=== PATIENT | male | born 1980 | race Caucasian/White ===

== ENCOUNTER 2017-08-06 08:46 | Emergency (ER) | payer BC ==
--- NOTE | 2017-08-06 09:47 | EDM.PDOC ---
<Julia Auguste - Last Filed: 08/06/17 09:37> ED HPI GENERAL MEDICAL PROBLEM - General Chief Complaint: Lower Extremity Injury/Pain Stated Complaint: L KNEE PAIN Time Seen by Provider: 08/06/17 09:25 Source of Information: Reports: Patient History Limitations: Reports: No Limitations - History of Present Illness INITIAL COMMENTS - FREE TEXT/NARRATIVE: Patient is a 36 YO male who presents today with pain to the left knee. He states this started and denies any injury or overuse. He has been taking Aleve and Indomethacin with some relief. He states the pain is presents at rest and is made worse with flexion of the knee. He states there is pain at the suprapatellar recess. He was seen at the walk-in clinic yesterday where they did an x-ray and uric acid level. He was told his uric acid level was low and the x-ray showed no bony abnormality. He has been wearing a brace and using crutches. This morning when he woke up the pain was severe and rated 9/ 10. He denies prior surgeries or chronic pain in the knee. He does have a history of gout and is not on any prophylactic medications. He denies fever or chills. Left Knee Pain Score (Numeric/FACES): 6 - Related Data Allergies Allergy/AdvReac Type Severity Reaction Status Date / Time No Known Allergies Allergy Verified 08/06/17 09:03 Home Meds: Home Meds Colchicine 0.6 mg PO ASDIRECTED #2 tablet 08/06/17 [Rx] Diclofenac Sodium [Voltaren] 50 mg PO TID #21 tab.ec 08/06/17 [Rx] Omeprazole Magnesium [Prilosec Otc] 20 mg PO DAILY 08/06/17 [History] Sucralfate [Carafate] 1 gm PO DAILY 08/06/17 [History] predniSONE [Deltasone] 20 mg PO BID #10 tablet 08/06/17 [Rx] Past Medical History HEENT History: Reports: Impaired Vision Gastrointestinal History: Reports: Other (See Below) Other Gastrointestinal History: Not diagnosed stomach problems Musculoskeletal History: Reports: Gout Psychiatric History: Reports: ADD - Past Surgical History GI Surgical History: Reports: Hernia Repair/Other Musculoskeletal Surgical History: Reports: Shoulder Surgery Other Musculoskeletal Surgeries/Procedures:: Hand surgery Social & Family History - Family History Family Medical History: Noncontributory - Tobacco Use Smoking Status *Q: Never Smoker - Recreational Drug Use Recreational Drug Use: No Review of Systems - Review of Systems Review Of Systems: See Below Constitutional: Reports: No Symptoms Respiratory: Reports: No Symptoms Cardiovascular: Reports: No Symptoms Musculoskeletal: Reports: Joint Pain (suprapatellar swelling, severe tenderness) Skin: Reports: No Symptoms Neurological: Reports: No Symptoms Psychiatric: Reports: No Symptoms ED EXAM, GENERAL - Physical Exam Exam: See Below Exam Limited By: No Limitations General Appearance: Alert, WD/WN, No Apparent Distress Respiratory/Chest: No Respiratory Distress, Lungs Clear, Normal Breath Sounds Cardiovascular: Regular Rate, Rhythm, No Murmur Extremities: Limited Range of Motion, Increased Warmth (left knee), Other (no errythema, no bruising, swelling and increased warmth over the suprapatellar recess.) Neurological: Alert, Oriented, CN II-XII Intact, No Motor/Sensory Deficits Course - Vital Signs Last Recorded V/S: Last Vital Signs Temp 37.1 C 08/06/17 08:58 Pulse 70 08/06/17 08:58 Resp 16 08/06/17 08:58 BP 130/91 H 08/06/17 08:58 Pulse Ox 97 08/06/17 08:58 - Orders/Labs/Meds Meds: Medications Discontinued Medications Generic Name Dose Route Start Last Admin Trade Name Joey PRN Reason Stop Dose Admin Colchicine 0.6 mg 08/06/17 09:51 Colcrys PO 08/06/17 09:52 ONETIME ONE Prednisone 30 mg 08/06/17 09:51 Prednisone PO 08/06/17 09:52 ONETIME ONE Departure - Departure Disposition: Home, Self-Care 01 Clinical Impression: Monoarthritis of knee Qualifiers: Laterality: left Qualified Code(s): M13.162 - Monoarthritis, not elsewhere classified, left knee - Discharge Information Prescriptions: Colchicine 0.6 mg PO ASDIRECTED #2 tablet Diclofenac Sodium [Voltaren] 50 mg PO TID #21 tab.ec predniSONE [Deltasone] 20 mg PO BID #10 tablet Referrals: PCP,None [Primary Care Provider] - Forms: ED Department Discharge, ED Return to Work/School Form Additional Instructions: Evaluation in the ED today in regards to acute inflammation and pain left knee that started overnight on July 31. Labs and x-ray were done at the clinic yesterday and revealed a normal uric acid level which is not uncommon if you have acute gout attack uric acid levels in your blood will drop. Therefore he can still have gout attack in spite of having normal uric acid levels. Had gout attacks in the past this most likely represents a gouty arthritis of the knee. Pseudogout crystals could also do this. The treatment however is the same. Limits are normal. Definite inflammation involving the true knee joint and the suprapatellar recess has fluid and increased warmth. Treatment is rest is much as possible. Colchicine 0.6 mg tablet one every hour by mouth for 3 consecutive hours. First one was provided in the ED. X will be due at 11:00 and the third one will be due at 12:00 this morning. Voltaren 50 mg 3 times daily with food for the next 7 days. Deltasone 20 mg with supper tonight. Then 1 tablet with breakfast and supper for 5 more days. Improvement in the inflammation and swelling over the next 24-36 hours. Note given to excuse her from the workplace certainly for today and see how things are for tomorrow. Return to medical care if not markedly improved in 48-72 hours. Should be pretty well back to normal in 72 hours time. <Umesh Pineda - Last Filed: 08/06/17 10:07> ED HPI GENERAL MEDICAL PROBLEM - History of Present Illness INITIAL COMMENTS - FREE TEXT/NARRATIVE: As described above. Patient states he had mild pain in his knee on evening. Overnight on Saturday, July 31 the pain became dramatically worse and noted swelling and warmth to his left knee. Patient has a history of multiple gout attacks involving his lower extremities but since cutting back on leaf pork and alcohol use and losing 30-40 pounds hasn't had a gout attack for several years. As he addressed he has was seen in the clinic yesterday and had a normal x-ray of his knee and uric acid proved to be in the normal range. However he can drop precipitously when you have acute an acute gout attack the uric acid crystals may drop and be normal in the blood. Patient denies any trauma to his knee. He states he is trying to walk through it and work through it over the weekend and give it much more rest. This morning however he could barely get out of bed due to the severity of the pain. He has been taking Motrin for pain and indomethacin which he had left over from his last gout attack without any relief over the last 3 days. No systemic signs of illness such as fever chills nausea or vomiting. Onset: Gradual Onset Date: 08/01/17 (Head very mild pain in his left knee on , July 30.) Duration: Day(s):, Getting Worse Location: Reports: Lower Extremity, Left (Left knee.) Quality: Reports: Ache, Sharp, Stabbing, Other Severity: Severe (Pain is quite severe with difficulty weightbearing. 8 out of 10) Improves with: Reports: Rest Worsens with: Reports: Other (Weightbearing), Movement Context: Reports: Other (Spontaneous occurrence without any known trauma.). Denies: Activity, Exercise, Lifting, Sick Contact, Trauma Associated Symptoms: Reports: No Other Symptoms. Denies: Fever/Chills, Headaches, Loss of Appetite, Nausea/Vomiting, Rash, Seizure, Shortness of Breath , Weakness Treatments [employer]: Reports: Other (see below) Past Medical History Musculoskeletal History: Reports: Gout (Has had several gout attacks in the past involving his lower extremities and ankles. After losing 30-40 pounds of weight and watching what he eats in terms of limiting his pork and beef intake he has had a gout attack for several years. Alcohol.) Social & Family History - Living Situation & Occupation Living situation: Reports: Occupation: Employed Review of Systems - Review of Systems Ears: Reports: No Symptoms Nose: Reports: No Symptoms Mouth/Throat: Reports: No Symptoms GI/Abdominal: Reports: No Symptoms Genitourinary: Reports: No Symptoms ED EXAM, GENERAL - Physical Exam Throat/Mouth: Normal Inspection, Normal Lips Head: Atraumatic, Normocephalic Neck: Normal Inspection GI/Abdominal: Normal Bowel Sounds, Soft, Non-Tender, No Organomegaly, No Distention Extremities: Joint Swelling (Assessment of the ligament shows cruciates and medial and lateral collateral ligaments to be normal.) Course - Orders/Labs/Meds Meds: Medications Discontinued Medications Generic Name Dose Route Start Last Admin Trade Name Freq PRN Reason Stop Dose Admin Colchicine 0.6 mg 08/06/17 09:51 Colcrys PO 08/06/17 09:52 ONETIME ONE Prednisone 30 mg 08/06/17 09:51 Prednisone PO 08/06/17 09:52 ONETIME ONE - Radiology Interpretation Free Text/Narrative:: 36-year-old male presents the ED with a four-day history of acute onset of severe left knee pain with swelling primarily in the suprapatellar recess but also along the joint line. There is warm to palpation suggestive of underlying inflammation. Ligaments are intact. He had an x-ray in clinic yesterday which was reportedly normal and he has no history of trauma to the knee. History of gout. 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 He will be treated with colchicine 0.6 mg every hourly 3. He will start be started on prednisone 30 mg in the ED then 20 mg twice a day for 5 more days. Voltaren 50 mg 3 times a day with meals for the next 7 days. He is on omeprazole to protect his stomach. He is on also on sucralfate intermittently. Note given to excuse him from the workplace today and possibly tomorrow. If he's not better in 48-72 hours he is to return to medical care. Clinically there are no signs or symptoms of a septic joint. Departure - Departure Time of Disposition: 09:51 Condition: Fair
[2017-08-06] MEDS ORDERED: predniSONE 20 MG Tab PO ONE (09:51)
[2017-08-06] MEDS ORDERED: Colchicine 0.6 MG Tab PO ONE (09:51)
== END 2017-08-06 10:10 | disposition home or self-care (01) ==
LOC: JD.ED 08:46
DX: M13.162 Monoarthritis, not elsewhere classified, left knee (principal); M10.9 Gout, unspecified
CPT/HCPCS: 99283; A9270

== ENCOUNTER 2024-08-13 17:06 | Emergency (ER) | payer BC ==
[2024-08-13 19:13] LABS: BASOPHILS ABSOLUTE AUTO 0.1 K/mm3 (0.0-0.2); BASOPHILS PERCENT AUTO 0.5 % (0.0-1.0); EOSINOPHILS ABSOLUTE AUTO 0.1 K/mm3 (0.0-0.4); EOSINOPHILS PERCENT AUTO 1.1 % (0.0-6.0); HEMATOCRIT 45.8 % (42.0-52.0); HEMOGLOBIN 16.3 gm/dl (14.0-18.0); IMMATURE GRAN ABSOLUTE AUTO 0.06 K/mm3 (0.00-0.05); IMMATURE GRAN PERCENT AUTO 0.5 % (0.0-0.4); MEAN CORPUSCULAR HGB CONC 35.6 g/dl (32.0-36.0); MEAN CORPUSCULAR VOLUME 87.2 fl (83.0-99.0); MEAN PLATELET VOLUME 10.4 fl (9.4-12.4); MONOCYTES ABSOLUTE AUTO 0.8 K/mm3 (0.0-0.8); MONOCYTES PERCENT AUTO 7.1 % (0.0-8.0); NEUTROPHILS ABSOLUTE AUTO 8.7 K/mm3 (1.8-7.7); NEUTROPHILS PERCENT AUTO 73.8 % (41.0-71.0); PLATELET COUNT,PLT 218 K/mm3 (150-400); RED BLOOD CELL COUNT 5.25 M/mm3 (4.52-5.90); WHITE BLOOD CELL COUNT,WBC 11.72 K/mm3 (3.9-11.3)
[2024-08-13] MEDS ORDERED: Naloxone 0.4 MG/ML SDV IVPUSH PRN (19:17)
[2024-08-13] MEDS: Ondansetron 4 MG/2 ML SDV IVPUSH ONE (19:19)
[2024-08-13 19:20] LABS: APPEARANCE,URINE SLT CLOUDY (Clear); BILIRUBIN,URINE NEGATIVE (Negative); COLOR,URINE YELLOW (Yellow); GLUCOSE,URINE NEGATIVE (Negative); KETONES,URINE NEGATIVE (Negative); LEUKOCYTE ESTERASE,URINE NEGATIVE (Negative); NITRITE,URINE NEGATIVE (Negative); OCCULT BLOOD,URINE 3+ (Negative); PH,URINE 5.5 (5.0-8.0); PROTEIN,URINE 1+ (Negative); UROBILINOGEN,URINE 0.2 (0.2-1.0)
[2024-08-13] MEDS: Acetaminophen 325 MG Tab PO ONE (19:22)
[2024-08-13] MEDS: Ketorolac 30 MG/ML SDV IVPUSH ONE (19:22)
[2024-08-13] MEDS: Sodium Chloride 0.9% 1,000 ML IV ONE (19:23)
[2024-08-13 19:25] LABS: BARBITURATE SCREEN,URINE NEGATIVE (CUTOFF=200); BENZODIAZEPINES SCREEN,URINE NEGATIVE (CUTOFF=150); BUPRENORPHINE SCREEN,URINE NEGATIVE (CUTOFF=10); METHADONE SCREEN, URINE NEGATIVE (CUT0FF=200); METHAMPHETAMINES SCREEN, URINE NEGATIVE (CUTOFF=500); OXYCODONE SCREEN,URINE NEGATIVE (CUT0FF=100); THC SCREEN,URINE 20 NG/ML NEGATIVE (CUTOFF=50)
[2024-08-13 19:27] LABS: A/G RATIO 1.1 (1-2); ALBUMIN 4.3 g/dl (3.4-5.0); ANION GAP 12.2 (5-15); BILIRUBIN TOTAL 0.8 mg/dL (0.2-1.0); BUN/CREATININE RATIO 13.6 (14-18); CALCIUM 9.5 mg/dL (8.5-10.1); CREATININE 1.4 mg/dL (0.7-1.3); EST CRCL DRUG DOSING (CG) 80.73 mL/min; PROTEIN TOTAL,TP 8.2 g/dl (6.4-8.2)
[2024-08-13 19:36] LABS: AMPHETAMINES SCREEN, URINE NEGATIVE (CUTOFF=500)
[2024-08-13] MEDS: HYDROmorphone 1 MG/ML Syringe IVPUSH ONE (19:37)
[2024-08-13 19:39] LABS: BACTERIA,URINE FEW /hpf (FEW); MUCUS,URINE FEW /hpf (FEW); RBC,URINE >100 /hpf (0-5); SQUAMOUS EPITHELIAL CELLS,UR 0-5 /hpf (0-5); WBC,URINE 0-5 /hpf (0-5)
[2024-08-13 19:53] LABS: POTASSIUM,K 4.2 mEq/L (3.5-5.1)
[2024-08-13] MEDS ORDERED: Sodium Chloride 0.9% 1,000 ML IV ONE (19:54)
[2024-08-13] MEDS ORDERED: Acetaminophen/oxyCODONE 325-5 MG Tab PO ONE (22:59)
== END 2024-08-13 21:39 | disposition home or self-care (01) ==
LOC: JD.ED 17:06
DX: N13.30 Unspecified hydronephrosis (principal); N28.9 Disorder of kidney and ureter, unspecified; Z79.899 Other long term (current) drug therapy
CPT/HCPCS: 36415; 74176; 80053; 80306; 81001; 82550; 83690; 85025; 96361; 96374; 96375; 99284; A9270; J1171; J1885; J2405; J7030